=== PATIENT | female | born 1980 | race Two or more races ===

== ENCOUNTER 2017-08-09 17:26 | Emergency (ER) | payer SELFPAY ==
[~2017-08-09] VITALS: Ht 144.8 cm; Wt 63.5 kg
[2017-08-09 17:33] VITALS: BP 116/65
== END 2017-08-09 18:23 | disposition home or self-care (01) ==
LOC: ER 17:30
DX: N60.12 Diffuse cystic mastopathy of left breast (principal)
CPT/HCPCS: 99281; A4606; Z7610; Z7502